=== PATIENT | male | born 1965 | race Caucasian/White ===

== ENCOUNTER 2019-05-06 00:37 | Emergency (ER) | payer MEDICARE ==
[~2019-05-06] VITALS: Ht 185.4 cm; Wt 165.5 kg
[2019-05-06 00:42] VITALS: Ht 185.4 cm; Wt 165.5 kg
[2019-05-06 01:22] LABS: BASOPHILS 0.3 % (0-2); HEMATOCRIT 48.9 % (42.0-54.0); HEMOGLOBIN 16.5 g/dL (13.5-17.5); IMMATURE GRANULOCYTES 0.4 % (0-5); LYMPHOCYTES 26.3 % (15-50); MCH 31.2 pg (26.0-34.0); MCHC 33.7 g/dL (31.0-37.0); MCV 92.4 fL (80.0-100.0); MEAN PLATELET VOLUME 10.3 fL (7.4-10.4); MONOCYTES 7.2 % (2-11); NEUTROPHILS 61.8 % (40-80); PLATELET COUNT 287 10x3/uL (130-400); RBC 5.29 10x6/uL (4.20-6.10); RDW 13.2 % (11.5-14.5); WBC 10.3 10x3/uL (4.8-10.8)
[2019-05-06 01:30] LABS: ANION GAP 12.8 mmol/L (8-16); CALCIUM 9.2 mg/dL (8.5-10.1); CARBON DIOXIDE 27.4 mmol/L (21.0-32.0); CREATININE - SERUM 1.3 mg/dL (0.6-1.3); POTASSIUM - SERUM 4.2 mmol/L (3.5-5.1)
[2019-05-06 01:47] LABS: ALBUMIN 3.9 g/dL (3.4-5.0); BILIRUBIN - TOTAL 0.24 mg/dL (0.2-1.3); PROTEIN - SERUM 7.3 g/dL (6.4-8.2)
[2019-05-06] MEDS ORDERED: CYCLOBENZAPRINE10 MG PO (02:26)
[2019-05-06] MEDS ORDERED: TORADOL10 MG PO (02:26)
[2019-05-06 03:38] VITALS: BP 166/84
[2019-05-06 03:45] LABS: APPEARANCE HAZY (CLEAR); BILIRUBIN NEGATIVE (NEGATIVE); COLOR STRAW (YELLOW); GLUCOSE NEGATIVE (NEGATIVE); KETONE NEGATIVE (NEGATIVE); NITRITE NEGATIVE (NEGATIVE); PROTEIN TRACE mg/dL (NEGATIVE); RED CELLS - URINE >50 /hpf (0-5); SPECIFIC GRAVITY 1.015 (1.005-1.020); UROBILINOGEN NORMAL (NORMAL); WHITE CELLS - URINE NSEEN /hpf (NEGATIVE)
[2019-05-06 03:51] LABS: UDS - AMPHET NEGATIVE QUAL (NEGATIVE); UDS - BARB NEGATIVE QUAL (NEGATIVE); UDS - BENZO NEGATIVE QUAL (NEGATIVE); UDS - COCAINE NEGATIVE QUAL (NEGATIVE); UDS - OPIATE NEGATIVE QUAL (NEGATIVE); UDS - PCP NEGATIVE QUAL (NEGATIVE); UDS - THC NEGATIVE QUAL (NEGATIVE)
== END 2019-05-06 03:48 | disposition home or self-care (01) ==
LOC: D.ER 00:37
PROVIDERS: Family Medicine
DX: M54.9 Dorsalgia, unspecified (principal); R31.9 Hematuria, unspecified; M79.604 Pain in right leg; M79.7 Fibromyalgia; I25.2 Old myocardial infarction; Z72.0 Tobacco use

== ENCOUNTER → 2019-09-11 13:12 | Outpatient (CLI) | payer MEDICARE ==
[2019-06-06 07:57] VITALS: BMI 47.4
[~2019-09-11 13:12] MED LIST: COREG12.5 MG PO; CYCLOBENZAPRINE10 MG PO; ENTRESTO 24 MG1 EACH PO; LASIX40 MG PO; POTASSIUM CHLOR8 ME1 PO; TORADOL10 MG PO
== END | disposition home or self-care (01) ==
LOC: D.HCCECHO 13:00
PROVIDERS: ATTEND Internal Medicine Cardiovascular Disease
DX: I42.0 Dilated cardiomyopathy (principal)